=== PATIENT | male | born 1980 ===

== ENCOUNTER 2018-05-27 09:45 | Emergency (ER) | payer BC ==
[~2018-05-27] VITALS: Ht 177.8 cm; Wt 90.9 kg
[2018-05-27 09:57] VITALS: Ht 177.8 cm; Wt 90.9 kg
[2018-05-27] MEDS ORDERED: PHENERGAN25 M1 PO (10:27)
[2018-05-27] MEDS ORDERED: VISTARIL25 MG PO (10:27)
[2018-05-27 11:01] VITALS: BP 144/62
== END 2018-05-27 11:01 | disposition home or self-care (01) ==
LOC: D.ER 09:45
DX: F11.23 Opioid dependence with withdrawal (principal); F41.9 Anxiety disorder, unspecified